=== PATIENT | male | born 1995 | race Hispanic/Latino ===

== ENCOUNTER 2024-04-20 18:21 | Inpatient (IN) | payer BC ==
[2024-04-20] VITALS (7 sets, daily range): BP systolic 115–142; BP diastolic 71–89
[~2024-04-20] VITALS: Ht 190.5 cm; Wt 126.0 kg
[~2024-04-20 18:21] MED LIST: ULTRAM50 MG PO
[2024-04-20] MEDS ORDERED: CLINDAMYCIN PHOSPHATE 50 ML IV ONE (19:15)
[2024-04-20 20:08] LABS: BASO% 0.1 % (0-3); IMMATURE GRANULOCYTES 0.4 % (0.0-5.0); LYMPH% 4.6 % (15-41); MEAN CELL VOLUME 83.4 fL CALC (80.0-100.0); MEAN CORPUSCULAR HGB 29.1 pG CALC (26.0-32.0); MEAN CORPUSCULAR HGB CONC 34.8 g/dL CAL (32.0-36.0); MONO% 8.5 % (2-13); NEUT# 19.43 thou/uL (1.82-7.42); NEUT% 86.4 % (42-76); RED BLOOD COUNT 4.75 mill/uL (4.70-6.10); RED CELL DISTRI WIDTH 12.4 % (11.5-15.5)
[2024-04-20 20:18] LABS: HEMATOCRIT 39.6 % (39.0-50.0); HEMOGLOBIN 13.8 g/dl (14.0-18.0)
[2024-04-20 20:20] LABS: POTASSIUM 3.7 mmol/l (3.5-5.1)
[2024-04-20] MEDS ORDERED: SODIUM CHLORIDE 0.9% 1,000 ML IV ONE ×2 (21:30)
[2024-04-20 21:52] LABS: URINE BLOOD DIPSTICK Negative (NEGATIVE); URINE GLUCOSE - DIPSTICK Negative (NEGATIVE); URINE KETONE Trace mg/dL (NEGATIVE); URINE LEUK ESTERASE Negative (NEGATIVE); URINE NITRITE - DIPSTICK Negative (Negative); URINE PROTEIN - DIPSTICK 30 mg/dL (NEG-TRACE); URINE SPECIFIC GRAVITY 1.015; URINE UROBILINOGEN - DIPSTICK >=8.0 E.U./dL (0.2)
[2024-04-20 21:54] LABS: URINE COLOR Dark yellow
[2024-04-20 22:00] LABS: URINE RBC 0-2 RBC/hpf (0-5); URINE WBC 0-2 WBC/hpf (0-5)
[2024-04-20 22:01] LABS: URINE BACTERIA RARE hpf
[2024-04-20 22:03] LABS: URINE SQUAMOUS EPITHELIAL CELL RARE EPI/hpf (0-FEW)
[2024-04-20 22:05] LABS: ALBUMIN 4.7 g/dL (3.2-5.0); POTASSIUM 3.7 mmol/l (3.5-5.1)
[2024-04-20 22:06] LABS: BILIRUBIN, TOTAL 1.2 mg/dL (0.2-1.3)
[2024-04-20] MEDS ORDERED: VANCOMYCIN HCL 1 GM in SODIUM CHLORIDE 0.9% 250 ML IV ONE (23:25)
[2024-04-20] MEDS ORDERED: cefTRIAXone SODIUM 2 GM in SODIUM CHLORIDE 0.9% 100 ML IV ONE (23:25)
[2024-04-20] MEDS ORDERED: ACETAMINOPHEN 325 MG/TAB PO ONE (23:55)
[2024-04-21] VITALS (34 sets, daily range): BP systolic 117–150; BP diastolic 66–89
[2024-04-21] MEDS ORDERED: ACETAMINOPHEN 325 MG/TAB PO PRN (05:30)
[2024-04-21] MEDS ORDERED: SODIUM CHLORIDE 0.9% 1,000 ML IV PRN (05:30)
[2024-04-21] MEDS ORDERED: MAGNESIUM HYDROXIDE 30 ML UDC PO PRN (05:30)
[2024-04-21] MEDS ORDERED: HYDROcodone 5 MG/Acetaminophen 325 MG/COMBO PO PRN (05:45)
[2024-04-21] MEDS ORDERED: ONDANSETRON HCl 4 MG/2 ML SDV IV PRN (05:45)
[2024-04-21] MEDS ORDERED: KETOROLAC TROMETHAMINE 30 MG/ML SDV IV PRN (05:45)
[2024-04-21] MEDS ORDERED: VANCOMYCIN HCL 1 GM in SODIUM CHLORIDE 0.9% 250 ML IV SCH (07:00)
[2024-04-21 07:25] LABS: BASO% 0.2 % (0-3); HEMATOCRIT 40.1 % (39.0-50.0); HEMOGLOBIN 13.5 g/dl (14.0-18.0); IMMATURE GRANULOCYTES 0.3 % (0.0-5.0); MEAN CELL VOLUME 84.2 fL CALC (80.0-100.0); MEAN CORPUSCULAR HGB 28.4 pG CALC (26.0-32.0); MEAN CORPUSCULAR HGB CONC 33.7 g/dL CAL (32.0-36.0); MONO% 8.5 % (2-13); NEUT# 18.32 thou/uL (1.82-7.42); RED BLOOD COUNT 4.76 mill/uL (4.70-6.10); RED CELL DISTRI WIDTH 12.6 % (11.5-15.5)
[2024-04-21 07:36] LABS: BILIRUBIN, TOTAL 0.8 mg/dL (0.2-1.3); CREATININE 0.9 mg/dL (0.7-1.3); MAGNESIUM 1.9 mg/dL (1.6-2.3)
[2024-04-21 07:40] LABS: ALBUMIN 3.7 g/dL (3.2-5.0); TOTAL PROTEIN 6.3 g/dL (6.3-8.2)
[2024-04-21] MEDS ORDERED: VANCOMYCIN HCL 1,500 MG in SODIUM CHLORIDE 0.9% 470 ML IV SCH (10:00)
[2024-04-21] MEDS ORDERED: ENOXAPARIN SODIUM 40 MG/0.4 ML SYR SC SCH (21:00)
[2024-04-21] MEDS ORDERED: cefTRIAXone SODIUM 2 GM in SODIUM CHLORIDE 0.9% 100 ML IV SCH (22:00)
[2024-04-22 03:39] VITALS: BP 149/81
[2024-04-22 05:37] LABS: BASO% 0.2 % (0-3); EOS% 0.5 % (0-8); HEMATOCRIT 37.5 % (39.0-50.0); HEMOGLOBIN 12.7 g/dl (14.0-18.0); IMMATURE GRANULOCYTES 0.3 % (0.0-5.0); LYMPH% 6.6 % (15-41); MEAN CELL VOLUME 86.2 fL CALC (80.0-100.0); MEAN CORPUSCULAR HGB 29.2 pG CALC (26.0-32.0); MEAN CORPUSCULAR HGB CONC 33.9 g/dL CAL (32.0-36.0); NEUT# 12.94 thou/uL (1.82-7.42); NEUT% 84.4 % (42-76); RED BLOOD COUNT 4.35 mill/uL (4.70-6.10); RED CELL DISTRI WIDTH 12.7 % (11.5-15.5)
[2024-04-22 05:47] LABS: ALBUMIN 3.3 g/dL (3.2-5.0); CREATININE 0.8 mg/dL (0.7-1.3); MAGNESIUM 2.1 mg/dL (1.6-2.3); POTASSIUM 3.9 mmol/l (3.5-5.1); TOTAL PROTEIN 5.8 g/dL (6.3-8.2)
[2024-04-22 05:54] LABS: BILIRUBIN, TOTAL 0.4 mg/dL (0.2-1.3)
[2024-04-22 06:49] VITALS: BP 133/89
[2024-04-22] MEDS ORDERED: VIBRAMYCIN100 M2 PO (11:29)
== END 2024-04-22 12:21 | disposition home or self-care (01) | DRG 728 ==
LOC: ED 18:21 → ED-I 23:00 → ED 23:26 → MS2 23:27 → ED-I 23:27 → MS2 04-21 07:27
PROVIDERS: Family Medicine; ADMIT Student in an Organized Health Care Education/Training Program; ATTEND Student in an Organized Health Care Education/Training Program
DX: N49.2 Inflammatory disorders of scrotum (principal); R00.0 Tachycardia, unspecified
CPT/HCPCS: J0736; J1650; J3370; Q9967